=== PATIENT | male | born 1990 ===

== ENCOUNTER 2016-05-13 10:56 | Emergency (ER) | payer SELFPAY ==
[2016-05-13] MEDS ORDERED: NS 0.9% 1000 ML* 2,000 ML IV ONE (11:06)
--- NOTE | 2016-05-13 11:50 | RAD ---
INDICATION: Right lower quadrant pain. COMPARISON: There are no prior studies available for comparison. TECHNIQUE: Multiple real-time images of the right lower quadrant were obtained using a graded compression technique. FINDINGS: No free intraperitoneal fluid or localized fluid collections are seen. The appendix was not visualized limiting the study. IMPRESSION: THE APPENDIX WAS NOT VISUALIZED LIMITING THE STUDY, CONSIDER A CT OF THE ABDOMEN AND PELVIS WITH INTRAVENOUS AND ORAL CONTRAST FOR FURTHER EVALUATION.
--- NOTE | 2016-05-13 11:52 | RAD ---
HISTORY: Right flank pain, kidney stones COMPARISONS: None relevant TECHNIQUE: Multiple transverse and longitudinal ultrasound images were obtained of the right kidney using grayscale and color Doppler imaging. FINDINGS: RIGHT KIDNEY: The right kidney is normal in shape, size, contour, and echogenicity. There is no hydronephrosis or nephrolithiasis. The right kidney measures 10.8 x 4 x 6.1 cm. LEFT KIDNEY: No images are submitted of the left kidney BLADDER: No images are submitted of the bladder. AORTA AND IVC: No images are submitted of the vasculature. RETROPERITONEUM: Unremarkable. OTHER: None. IMPRESSION: NO RIGHT HYDRONEPHROSIS OR NEPHROLITHIASIS
[2016-05-13 11:59] LABS: Hematocrit 44 % (42-52); Hemoglobin 14.3 g/dl (14.0-18.0); Mean Corpuscular HGB Conc 33 g/dl (31-36); Mean Corpuscular Hemoglobin 29 pg (27-31); Mean Corpuscular Volume 87 fL (80-94); Mean Platelet Volume 9 um3 (7.4-10.4); Red Blood Count 5.03 10^6/ul (4.0-5.4); Red Cell Distribution Width 13 % (10.5-15); White Blood Count 13.7 10^3/ul (3.5-10.8)
[2016-05-13 12:24] LABS: ALT 26 U/L (7-52); AST 32 U/L (13-39); Albumin 4.4 g/dL (3.2-5.2); Alkaline Phosphatase 68 U/L (34-104); Anion Gap 8 mmol/L (2-11); BUN/Creatinine Ratio 23.8 (8-20); Blood Urea Nitrogen 20 mg/dL (6-24); C Reactive Protein < 1.00 mg/L (< 5.00); CO2 Carbon Dioxide 26 mmol/L (22-32); Calcium 9.4 mg/dL (8.6-10.3); Chloride 104 mmol/L (101-111); EGFR African American 144.4 (>60); EGFR Non-African American 112.3 (>60); Globulin 2.7 g/dL (2-4); Glucose 106 mg/dL (70-100); Lipase < 10 U/L (11.0-82.0); Potassium 3.9 mmol/L (3.5-5.0); Sodium 138 mmol/L (133-145); Total Protein 7.1 g/dL (6.4-8.9)
[2016-05-13 12:44] LABS: Urine Bacteria Absent (Absent); Urine Bilirubin Negative (Negative); Urine Glucose Negative (Negative); Urine Nitrite Negative (Negative)
--- NOTE | 2016-05-13 12:54 | ED ---
Jayy, DoctorRhonda, scribed for Luc Caldera MD on 05/13/16 at 1128 . GI/ HPI - HPI Summary HPI Summary: 25 year old male arrived to [facility] by Ambulance c/o right flank pain beginning at 08:30 this morning. The pain has been constant since onset, and was 8/10 at its worse. He now rates his pain as 1/10 after taking a Tylenol. He reports feeling nausea and vomiting this morning, but denies any abdominal pain, testicular pain, or painful urination. He reports feeling an increased frequency in bowel movements, but indicates that "nothing would come out." He has PMHx of nephrolithiasis which passed naturally 4 years ago. - History of Current Complaint Chief Complaint: EDFlankPain Time Seen by Provider: 05/13/16 11:00 Stated Complaint: ABD PAIN Hx Obtained From: Patient Onset/Duration: Started Hours Ago Timing: Constant Severity: Moderate Current Severity: Moderate Pain Intensity: 1 Associated Signs and Symptoms: Positive: Nausea, Vomiting, Other: - right flank pain. Negative: Dysuria Aggravating Factor(s): Nothing Alleviating Factor(s): OTC Analgesics - Tylenol - Allergy/Home Medications Allergies/Adverse Reactions: Allergies Allergy/AdvReac Type Severity Reaction Status Date / Time No Known Allergies Allergy Verified 05/13/16 11:38 PMH/Surg Hx/FS Hx/Imm Hx Infectious Disease History: No Infectious Disease History: Denies: Traveled Outside the [place] in Last 30 Days - Family History Known Family History: Negative: Cardiac Disease, Hypertension, Diabetes - Social History Occupation: Student Hx Tobacco Use: Yes Smoking Status (MU): Light Every Day Tobacco Smoker Review of Systems Negative: Fever Positive: Vomiting, Nausea. Negative: Abdominal Pain Positive: flank pain. Negative: hematuria Positive: Other - right flank pain All Other Systems Reviewed And Are Negative: Yes Physical Exam Triage Information Reviewed: Yes Vital Signs On Initial Exam: Initial Vitals Temp Pulse Resp BP Pulse Ox 98.0 F 56 16 131/64 100 05/13/16 11:03 05/13/16 11:03 05/13/16 11:03 05/13/16 11:03 05/13/16 11:03 Vital Signs Reviewed: Yes Appearance: Positive: Well-Appearing, No Pain Distress Skin: Positive: Warm, Skin Color Reflects Adequate Perfusion, Dry Head/Face: Positive: Normal Head/Face Inspection Eyes: Positive: EOMI, VAN ENT: Positive: Normal ENT inspection Neck: Positive: Supple, Nontender Respiratory/Lung Sounds: Positive: Clear to Auscultation, Breath Sounds Present Cardiovascular: Positive: RRR Abdomen Description: Positive: Nontender, Soft Bowel Sounds: Positive: Present Musculoskeletal: Positive: Other - mild tenderness in right flank Neurological: Positive: Normal, Sensory/Motor Intact, Alert, Oriented to Person Place, Time Psychiatric: Positive: Normal, Affect/Mood Appropriate Diagnostics - Vital Signs Vital Signs Temp Pulse Resp BP Pulse Ox 05/13/16 11:03 98.0 F 56 16 131/64 100 - Laboratory Lab Results: Lab Results 05/13/16 05/13/16 05/13/16 Range/Units 11:15 11:15 11:15 WBC 13.7 H (3.5-10.8) 10^3/ul RBC 5.03 (4.0-5.4) 10^6/ul Hgb 14.3 (14.0-18.0) g/dl Hct 44 (42-52) % MCV 87 (80-94) fL MCH 29 (27-31) pg MCHC 33 (31-36) g/dl RDW 13 (10.5-15) % Plt Count 177 (150-450) 10^3/ul MPV 9 (7.4-10.4) um3 Neut % (Auto) 85.6 H (38-83) % Lymph % (Auto) 8.5 L (25-47) % Desha % (Auto) 4.8 (1-9) % Eos % (Auto) 0.8 (0-6) % Baso % (Auto) 0.3 (0-2) % Absolute Neuts (auto) 11.7 H (1.5-7.7) 10^3/ul Absolute Lymphs (auto) 1.2 (1.0-4.8) 10^3/ul Absolute Monos (auto) 0.7 (0-0.8) 10^3/ul Absolute Eos (auto) 0.1 (0-0.6) 10^3/ul Absolute Basos (auto) 0 (0-0.2) 10^3/ul Absolute Nucleated RBC 0.01 10^3/ul Nucleated RBC % 0 Sodium 138 (133-145) mmol/L Potassium 3.9 (3.5-5.0) mmol/L Chloride 104 (101-111) mmol/L Carbon Dioxide 26 (22-32) mmol/L Anion Gap 8 (2-11) mmol/L BUN 20 (6-24) mg/dL Creatinine 0.84 (0.67-1.17) mg/dL Est GFR ( Amer) 144.4 (>60) Est GFR (Non-Af Amer) 112.3 (>60) BUN/Creatinine Ratio 23.8 H (8-20) Glucose 106 H (70-100) mg/dL Lactic Acid 1.5 (0.5-2.0) mmol/L Calcium 9.4 (8.6-10.3) mg/dL Total Bilirubin 0.30 (0.2-1.0) mg/dL AST 32 (13-39) U/L ALT 26 (7-52) U/L Alkaline Phosphatase 68 (34-104) U/L C-Reactive Protein < 1.00 (< 5.00) mg/L Total Protein 7.1 (6.4-8.9) g/dL Albumin 4.4 (3.2-5.2) g/dL Globulin 2.7 (2-4) g/dL Albumin/Globulin Ratio 1.6 (1-3) Lipase < 10 L (11.0-82.0) U/L Urine Color Urine Appearance Urine pH (5-9) Ur Specific [place] (1.010-1.030) Urine Protein (Negative) Urine Ketones (Negative) Urine Blood (Negative) Urine Nitrate (Negative) Urine Bilirubin (Negative) Urine Urobilinogen (Negative) Ur Leukocyte Esterase (Negative) Urine WBC (Auto) (Absent) Urine RBC (Auto) (Absent) Urine Bacteria (Absent) Urine Glucose (Negative) 05/13/16 Range/Units 12:00 WBC (3.5-10.8) 10^3/ul RBC (4.0-5.4) 10^6/ul Hgb (14.0-18.0) g/dl Hct (42-52) % MCV (80-94) fL MCH (27-31) pg MCHC (31-36) g/dl RDW (10.5-15) % Plt Count (150-450) 10^3/ul MPV (7.4-10.4) um3 Neut % (Auto) (38-83) % Lymph % (Auto) (25-47) % Desha % (Auto) (1-9) % Eos % (Auto) (0-6) % Baso % (Auto) (0-2) % Absolute Neuts (auto) (1.5-7.7) 10^3/ul Absolute Lymphs (auto) (1.0-4.8) 10^3/ul Absolute Monos (auto) (0-0.8) 10^3/ul Absolute Eos (auto) (0-0.6) 10^3/ul Absolute Basos (auto) (0-0.2) 10^3/ul Absolute Nucleated RBC 10^3/ul Nucleated RBC % Sodium (133-145) mmol/L Potassium (3.5-5.0) mmol/L Chloride (101-111) mmol/L Carbon Dioxide (22-32) mmol/L Anion Gap (2-11) mmol/L BUN (6-24) mg/dL Creatinine (0.67-1.17) mg/dL Est GFR ( Amer) (>60) Est GFR (Non-Af Amer) (>60) BUN/Creatinine Ratio (8-20) Glucose (70-100) mg/dL Lactic Acid (0.5-2.0) mmol/L Calcium (8.6-10.3) mg/dL Total Bilirubin (0.2-1.0) mg/dL AST (13-39) U/L ALT (7-52) U/L Alkaline Phosphatase (34-104) U/L C-Reactive Protein (< 5.00) mg/L Total Protein (6.4-8.9) g/dL Albumin (3.2-5.2) g/dL Globulin (2-4) g/dL Albumin/Globulin Ratio (1-3) Lipase (11.0-82.0) U/L Urine Color Yellow Urine Appearance Clear Urine pH 6.0 (5-9) Ur Specific [place] 1.012 (1.010-1.030) Urine Protein Negative (Negative) Urine Ketones Negative (Negative) Urine Blood 3+ H (Negative) Urine Nitrate Negative (Negative) Urine Bilirubin Negative (Negative) Urine Urobilinogen Negative (Negative) Ur Leukocyte Esterase Negative (Negative) Urine WBC (Auto) Absent (Absent) Urine RBC (Auto) 3+(>10/hpf) H (Absent) Urine Bacteria Absent (Absent) Urine Glucose Negative (Negative) Result Diagrams: 05/13/16 11:15 05/13/16 11:15 Lab Statement: Any lab studies that have been ordered have been reviewed, and results considered in the medical decision making process. - Additional Comments Diagnostic Additional Comments: Abdominal Ultrasound -- IMPRESSION: THE APPENDIX WAS NOT VISUALIZED LIMITING THE STUDY, CONSIDER A CT OF THE ABDOMEN AND PELVIS WITH INTRAVENOUS AND ORAL CONTRAST FOR FURTHER EVALUATION. Renal US -- IMPRESSION: NO RIGHT HYDRONEPHROSIS OR NEPHROLITHIASIS Re-Evaluation - Re-Evaluation First Eval Re-Evaluation Time: 12:09 Change: Improved Comment: Patient is pain-free. Was able to urinate, successfully passed what appeared to be a small kidney stone. GIGU Course/Dx - Course Assessment/Plan: PAIN FREE IN ED. 2MM BROWN STONE SEEN IN URINE AND SENT TO LAB. DISCUSSED RESULTS WITH PATIENT. DISCHARGE HOME STABLE. - Diagnoses Provider Diagnoses: Abdominal pain, Kidney stone Discharge - Discharge Plan Condition: Stable Disposition: HOME Patient Education Materials: Abdominal Pain (ED), Kidney Stones (ED) Referrals: [facility] TATUM Cantu [Primary Care Provider] - Additional Instructions: FOLLOW UP WITH TATUM AND UROLOGY. RETURN TO THE EMERGENCY DEPARTMENT FOR ANY WORSENING OF YOUR CONDITION; PAIN, FEVER, YOU FEEL ILL OR QUESTIONS OR CONCERNS. The documentation as recorded by the Doctor baumann Tahera accurately reflects the service I personally performed and the decisions made by me, Luc Caldera MD.
[2016-05-13 13:13] VITALS: BP 134/83
== END 2016-05-13 13:11 | disposition home or self-care (01) ==
LOC: ED 10:56
DX: R10.84 Generalized abdominal pain (principal); N20.0 Calculus of kidney; R11.2 Nausea with vomiting, unspecified; F17.210 Nicotine dependence, cigarettes, uncomplicated
CPT/HCPCS: 36415; 76705; 76775; 80053; 81003; 81015; 82365; 83605; 83690; 85025; 86140; 96360; 99282